=== PATIENT | female | born 1950 | race Caucasian/White ===

== ENCOUNTER 2018-12-10 08:09 | Day surgery (SDC) | payer MEDICARE ==
[~2018-12-10] VITALS: Ht 162.6 cm; Wt 70.4 kg
[~2018-12-10 08:09] MED LIST: ACETAMINOPHEN 325 MG TAB PO PRN; BALANCED SALT IRRIGATION SOLUTION 500ML BAG (FOR OR EYE MACHINE) As Ordered ONE; CEFUROXIME 1MG/0.1ML INTRACAMERAL INJ As Ordered ONE; CYCLOPENTOLATE 2% OPHTH SOLN 2ML BTL OD ONE; FISH1000 PO; HEALON DUET PRO(HEALON 10MG/ML 0.55ML & HEALON ENDOCOAT 30MG/ML 0.85ML) As Ordered ONE; LIDOCAINE 1% SDV 5 ML VIAL As Ordered ONE; LIDOCAINE 3.5 % 1ML OPHTH TOPICAL GEL OU ONE; MIDAZOLAM INJ 2 MG/2 ML VIAL (J2250) As Ordered ONE; OFLOXACIN 0.3 % (OCUFLOX) OPTH SOL 5ML OD ONE; PHENYLEPHRINE 2.5% OPHTH SOL 2ML OD ONE; PHENYLEPHRINE HCL 10 % OPHTH. SOL 5ML OD PRN; POVIDONE-IODINE 5% OPHTH PREP SOL 30ML As Ordered ONE; PROPARACAINE 0.5% OPHTH SOL 15ML OD PRN; TROPICAMIDE 1% OPHTH SOLN 2ML OD ONE; VITAD1000T PO; fentaNYL 100 MCG/2 ML INJECTION (J3010) As Ordered ONE
[2018-12-10] MEDS ORDERED: ONDANSETRON 4MG/2ML VIAL (J2405) As Ordered ONE (09:47)
--- NOTE | 2018-12-10 10:12 | RO ---
DATE OF PROCEDURE: 12/10/2018 PREOPERATIVE DIAGNOSIS: Age-related nuclear cataract right eye. POSTOPERATIVE DIAGNOSIS: Age-related nuclear cataract right eye. PROCEDURE PERFORMED: Phacoemulsification with posterior chamber intraocular lens implantation with use of Optiwave refractory analysis (ORA). Lens used was an AU00T0, ZKB00, 14.5 diopter. SURGEON: Nahed Phelan MD [employer]: Topical sedation. ANESTHESIA: DESCRIPTION OF PROCEDURE: The patient was prepped and draped in usual fashion. A lid speculum was placed between the lids. The eye was fixated. A stab incision was made into the anterior chamber. 1% nonpreserved lidocaine was instilled, and viscoelastic was instilled. The eye was refixated. A 2.4 mm keratome was used to make a clear corneal temporal limbal incision. Capsulorrhexis was begun with a cystotome and carried out in circular fashion with capsulorrhexis forceps. Lens was hydrodissected and the phacoemulsification unit used to groove the nucleus in two meridians. The nucleus was cracked into four quadrants. Each quadrant was removed with the phacoemulsification unit. Any remaining cortex was removed with the irrigation and aspiration (I and A) unit. Healon was instilled into the eye, and the pressure was checked with a handheld tonometer. The ORA unit was placed over the eye and focused on the apex of the cornea. The patient was properly aligned, and measurements were made. The measurements then gave an appropriate lens power, which was used. The intraocular lens was placed into its floor scrubber and injected into the eye. Then manipulation was used to center the lens. Any remaining viscoelastic was removed with the I and A unit. The wound was hydrated, and Miochol and cefuroxime were instilled. Patient tolerated procedure well and went to recovery room in stable condition.
[2018-12-10] MEDS ORDERED: AcetaZOLAMIDE 500 MG ER CAP PO ONE (10:30)
[2018-12-10] MEDS ORDERED: TRIMETHOBENZAMIDE 300 MG CAP PO PRN (10:30)
[2018-12-10] MEDS ORDERED: KETOROLAC 0.5% OPHTH SOLN OD ONE (10:30)
[2018-12-10 10:56] VITALS: BP 105/66
== END 2018-12-10 11:07 | disposition home or self-care (01) ==
LOC: M SDC 08:09
PROVIDERS: ATTEND Ophthalmology
DX: H25.12 Age-related nuclear cataract, left eye (principal)
CPT/HCPCS: 66984; 92015; J2250; J2405; J3010; V2788